=== PATIENT | male | born 1975 | race Caucasian/White ===

== ENCOUNTER 2025-04-02 21:09 | Emergency (ER) | payer SELFPAY ==
[2025-04-02] VITALS (10 sets, daily range): BP systolic 113–139; BP diastolic 54–91; BMI 25.2
[2025-04-03 02:07] VITALS: BP 110/72
--- NOTE | 2025-04-03 02:35 | ED.GENMED ---
History of Present Illness
General
Chief Complaint: Musculo-Skeletal Complaint
Source: patient and police
Time Seen by Provider: 04/02/25 22:03
Nursing documentation reviewed up to this point in time: agreed with
History of Present Illness
History of Present Illness:
Note:
CHIEF COMPLAINT(S)
Swelling and inability to bend the knee.
HISTORY OF PRESENT ILLNESS
The patient is a 49-year-old male presenting with swelling and inability to bend his knee for the past day and a half. The patient reports this is the first occurrence of such symptoms. He denies any recent injuries or trauma to the knee. The
ultrasound results indicate no effusion. An X-ray is planned to further investigate the cause of the symptoms.
PHYSICAL EXAM
General: Alert, no acute distress.
Skin: Warm, dry. Multiple tattoos
Head: Normocephalic, atraumatic.
Neck: Supple, trachea midline.
Eye, Ears, Nose, Mouth and Throat: Oral mucosa moist.
Cardiovascular: Normal peripheral perfusion, no edema.
Respiratory: Respirations are non-labored.
Gastrointestinal: Abdomen nondistended.
Back: Normal range of motion, normal alignment.
Musculoskeletal: Mild left knee swelling with restricted range of motion. Normal strength in other joints. Well-healed scar from previous surgery in the left knee. No obvious effusion.
Neurological: Alert and oriented to person, place, time, and situation, no focal neurological deficit observed.
Psychiatric: Cooperative, appropriate mood & affect.
PLAN
Order an X-ray to further evaluate the knee.
DIFFERENTIAL DIAGNOSIS
The Differential Diagnosis includes, in no particular order and is not limited to:
1. Osteoarthritis
2. Gout
3. Rheumatoid arthritis
4. Meniscal tear
5. Ligament sprain
6. Septic arthritis
7. Bursitis
8. Tendinitis
9. Patellar dislocation
10. Pseudogout
Disposition:
SUMMARY OF ENCOUNTER
The patient is a 49-year-old male who presented with left knee pain and swelling, with an inability to bend the knee for a day and a half. He denied any recent injury or trauma. An ultrasound ruled out deep vein thrombosis (DVT), and an X-ray showed
no acute osteoarticular abnormality, although some arthritis was noted. The patient is from a correctional facility where he has been for a month and a half.
DISPOSITION
Discharge back to halfway.
ASSESSMENT
Swelling and pain in the left knee likely due to arthritis, given the lack of acute injury and imaging findings.
PLAN
The patient will be discharged back to the correctional facility with potential follow-up care as required by the facility�s healthcare provider.
INDEPENDENT REVIEW OF LABS AND INTERPRETATION OF TESTS
- My independent interpretation of the ultrasound is negative for DVT.
- My independent interpretation of the X-ray shows no acute osteoarticular abnormality, with some arthritis noted.
MEDICAL DECISION MAKING
- Complexity of Data Reviewed: Chronic conditions affecting care include a history of past orthopedic surgery for a fracture. Differential diagnosis includes osteoarthritis, gout, rheumatoid arthritis, meniscal tear, ligament sprain, septic
arthritis, bursitis, tendinitis, patellar dislocation, and pseudogout.
- Data:
- Category 1: Reviewed ultrasound and X-ray independently, confirming no DVT and identifying arthritis.
-Risk: Consideration of Admission/Observation: Escalation of care including admission/observation was considered given the complexity and risk of the patients presenting complaint, exam findings, and/or their underlying comorbidities. However,
ultimately I feel the patient is safe for outpatient management with close follow-up. Reasoning: Work-up reassuring, does not reveal any acute life/organ threatening processes, patients symptoms well controlled upon reevaluation, reexamination is
reassuring, vitals are stable, patient agreeable with discharge, reliable for follow-up.
DIAGNOSIS
- Osteoarthritis (M15.9)
Phy Exam
Physical Exam
Physical Exam:
.
Course
Orders/Labs/Results
Orders:
Orders
04/02/25 22:03
US Legs, Left [US Periph Venous LOWER Ext LT] Urgent
Comment:
Reason For Exam: swelliing
04/03/25 02:00
Knee, Left 4 or More Views [CR Knee - Left 4 Or More View*] Urgent
Comment:
Reason For Exam: left knee pain
04/03/25 02:32
Knee Immobilizer Left-Treatmen ONCE
Vital Signs
Initial and Last Documented VS:
Initial Vital Signs
Temp Pulse Resp BP Pulse Ox
97.6 F 62 18 113/83 100
04/02/25 21:12 04/02/25 21:12 04/02/25 21:12 04/02/25 21:12 04/02/25 21:12
Last Documented Vital Signs
Temp Pulse Resp BP Pulse Ox
97.6 F 56 18 110/72 98
04/02/25 21:12 04/03/25 02:19 04/03/25 02:19 04/03/25 02:07 04/03/25 02:39
*Pulse Oximetry
SaO2: 98
Oxygen Mode of Delivery: Room air
Patient hypoxic: no
*Critical Care Note
Total Time (30-74mins, 75-104mins- exclusive of procedures): Not Applicable
ED Attending Note
-
Portions of this chart may have been created with voice recognition software.� Occasional wrong word or��sound alike� substitutions may have occurred due to the inherent limitations of voice recognition software.
Discharge Plan
Departure
Patient Disposition: [facility]
Date of Disposition: 04/03/25
Time of Disposition: 02:35
Patient with high blood pressure during this ER visit?: Yes
Discharge Problem:
Acute knee pain
Instructions: How to Use Crutches, Knee Immobilizer (DC), Using Cold for Pain
Referrals:
[facility] [Family Provider, General]
Scar Serrano MD [Active, Orthopedics] - As needed
Activity Restrictions/Additional Instructions:
Please follow-up with orthopedic surgery as discussed if pain persist.
Patient medically cleared for discharge back to halfway.
Thank You for choosing [facility].
It was a pleasure meeting you and taking part in your care. We hope for your continued healing and wellness.
Please read discharge instructions in their entirety. However, they are for general education and may not describe your exact diagnosis at discharge. Information on your ER visit and medical conditions were discussed with you along with appropriate
follow up information...
If indicated, please take your medications as instructed and indicated on discharge paperwork.
Please schedule a follow up appointment as directed. Call to schedule an appointment
Please return to the emergency department with ANY change in, persisting, or worsening of symptoms. If any of your symptoms do not improve, or persist, or become more severe within 6-12 hours, please return to the emergency department for further
care.
Please return to the emergency department if you develop a headache, neck pain/stiffness, fever greater than 100.4F, chest pain, shortness of breath, persistent nausea, vomiting, slurred speech, difficulty walking, numbness/tingling, weakness, signs
of infection or any other symptoms that are worrisome to you.
If you have any questions or concerns please do not hesitate to call the Hospital at .
Interventions
Interventions:
*General Assessment Last Done: 04/02/25 21:12
*Neglect/Abuse Screening Last Done: 04/02/25 21:12
*ED COVID-19 Vaccine History Last Done: 04/02/25 21:12
*ED Influenza Vaccine History Last Done: 04/02/25 21:12
[facility] Risk Assessment Tool Last Done: 04/02/25 22:50
*Risk Screen - Suicide (C-SSRS) Last Done: 04/02/25 21:12
*Nursing Disposition Last Done: 04/03/25 03:05
ED-Musculoskeletal Assessment Last Done: 04/02/25 21:12
Discharge Date and Time
Discharge Date/Time: 04/03/25 03:06
Print Language: [place]
== END 2025-04-03 03:06 ==
LOC: EMR 21:09
PROVIDERS: EMERGENCY PHYSICIAN Student in an Organized Health Care Education/Training Program
DX: M25.562 Pain in left knee (principal); R22.42 Localized swelling, mass and lump, left lower limb
CPT/HCPCS: 99284; 73564; 93971